=== PATIENT | female | born 1970 | race Caucasian/White ===

== ENCOUNTER 2021-01-02 19:45 | Observation (INO) | payer BC ==
[2021-01-02 20:24] LABS: #Basophils 0.1 10x3/uL (0.0-0.2); #Eosinphils 0.6 10x3/uL (0.0-0.5); #Monocytes 0.7 10x3/uL (0.0-1.1); #Neutrophils 5.5 10x3/uL (1.5-8.4); %Basophils 0.7 % (0.0-2.0); %Eosinophils 5.9 % (0.0-6.0); %Lymphocytes 35.8 % (18.0-47.0); %Monocytes 6.5 % (0.0-10.0); %Neutrophils 50.8 % (40.0-75.0); Mean Corpuscular HGB CONC 33.6 g/dL (32.0-36.0); Mean Corpuscular Hemoglobin 31.5 pg (27.0-33.0); Mean Corpuscular Volume 93.7 fl (81.6-98.3); Platelet Count 398 10x3/uL (150-450); RBC Distribution Width 13.5 % (11.5-14.5); Red Blood Cell (RBC) Count 4.76 10x6/uL (3.90-5.03); White Blood Cell (WBC) Count 10.8 10x3/uL (3.5-10.5)
[2021-01-02] MEDS ORDERED: Aspirin Chewable 81 MG TAB ONE (20:32)
[2021-01-02] MEDS ORDERED: Nitroglycerin 0.4 MG TAB 1 EACH ONE (20:32)
[2021-01-02] MEDS ORDERED: Ondansetron PF 4 MG/2 ML Vial ONE (20:33)
[2021-01-02 20:41] LABS: ALT (SGPT) 28 U/L (8-55); AST (SGOT) 19 U/L (5-34); Albumin 4.7 g/dL (3.5-5.0); Alkaline Phosphatase 67 U/L (40-110); Anion Gap 16 mmol/L (10-20); BUN (Urea Nitrogen) 16 mg/dL (7.0-18.7); Bilirubin, Total 0.4 mg/dL (0.2-1.2); Calc. Creatinine Clearance 0 mL/min (70-130); Calcium 9.2 mg/dL (7.8-10.44); Carbon Dioxide 21 mmol/L (22-29); Chloride 107 mmol/L (98-107); Globulin 2.9 g/dL (2.4-3.5); Glucose 99 mg/dL (70-105); Potassium 4.3 mmol/L (3.5-5.1); Protein, Total 7.6 g/dL (6.0-8.3); Sodium 140 mmol/L (136-145)
[2021-01-02] MEDS ORDERED: Cyclobenzaprine 10 MG TAB ONE (22:10)
[2021-01-02] MEDS ORDERED: Zolpidem Tartrate 5 MG TAB PO PRN (22:40)
[2021-01-02] MEDS ORDERED: Ondansetron PF 4 MG/2 ML Vial IVP PRN (22:40)
[2021-01-02] MEDS ORDERED: Calcium Carbonate 500 MG ChewTAB PO PRN (22:40)
[2021-01-02] MEDS ORDERED: ALPRAZolam 0.25 MG TAB PO PRN (22:45)
[2021-01-03 00:03] VITALS: BMI 36.3
[2021-01-03] MEDS ORDERED: Lactated Ringer's 500 ML IV SCH (00:30)
[2021-01-03] MEDS: HYDROcodone/Acetaminophen 5/325 mg Tablet PO PRN ×2 (01:13→22:10)
[2021-01-03 01:50] LABS: SARS-CoV-2 NAA Rapid Test Not Detected (NotDetected)
[2021-01-03 04:59] LABS: Anion Gap 12 mmol/L (10-20); BUN (Urea Nitrogen) 17 mg/dL (7.0-18.7); Calc. Creatinine Clearance 122 mL/min (70-130); Carbon Dioxide 26 mmol/L (22-29); Cardiac Risk 5.6 (Less than 4.5); Chloride 108 mmol/L (98-107); Cholesterol 195 mg/dl (< 200 Desired); Glucose 134 mg/dL (70-105); HDL Cholesterol 35 mg/dL (>60 Neg Risk); LDL Cholesterol, Calculated 98 mg/dL; Potassium 4.4 mmol/L (3.5-5.1); Sodium 142 mmol/L (136-145); Triglycerides 312 mg/dL (Less than 150)
[2021-01-03 08:05] LABS: Bilirubin Neg (Negative); Blood, Urine Negative (Negative); Clarity Slightly Cloudy (Clear); Glucose, Urine (Dipstick) Normal (Negative); Ketone, Urine Negative (Negative); Leukocyte 100 (Negative); Nitrite Negative (Negative); Protein, Urine (Dipstick) Negative (Neg-Trace); Specific Gravity, Urine 1.015 (1.002-1.036); Urobilinogen Normal mg/dL (Less than 2)
[2021-01-03 08:20] LABS: Bacteria/HPF 3+ HPF (None Seen); RBC/HPF 0-3 HPF (0-3)
[2021-01-03] MEDS: Aspirin 81 mg Enteric Coated Tablet PO SCH (08:24)
[2021-01-03] MEDS: DULoxetine 30 MG CAP PO SCH (08:24)
[2021-01-03] MEDS: Enoxaparin Sodium 40 MG/0.4 ML SYRINGE SC SCH (08:24)
[2021-01-03] MEDS: Famotidine/PF 20 mg/2ml Vial SLOW IVP SCH ×2 (08:24→20:36)
[2021-01-03] MEDS ORDERED: Ketorolac Tromethamine 30 MG/ML VIAL IVP SCH (08:45)
[2021-01-03] MEDS ORDERED: Metoprolol Tartrate 25 MG TAB PO SCH ×2 (09:00→10:00)
[2021-01-03] MEDS: Nitroglycerin 0.4 MG TAB (25 Tab Bottle) SL PRN ×2 (10:21→11:06)
[2021-01-03] MEDS: Acetaminophen 325 MG TAB PO PRN (10:40)
[2021-01-03 11:26] LABS: Hemoglobin A1c 5.6 % (4.0-6.0)
[2021-01-03 12:23] LABS: Troponin I Less than 0.010 ng/mL (< 0.028)
[2021-01-03 17:25] LABS: Bilirubin Neg (Negative); Blood, Urine Negative (Negative); Clarity Cloudy (Clear); Glucose, Urine (Dipstick) Normal (Negative); Ketone, Urine Negative (Negative); Leukocyte 100 (Negative); Nitrite Negative (Negative); Protein, Urine (Dipstick) Negative (Neg-Trace); Specific Gravity, Urine 1.005 (1.002-1.036); Urobilinogen Normal mg/dL (Less than 2)
[2021-01-03 18:26] LABS: Bacteria/HPF 2+ HPF (None Seen); Mucous/LPF 1+ LPF (<2+); RBC/HPF 0-3 HPF (0-3)
[2021-01-03] MEDS: Metoprolol Tartrate 25 MG TAB PO SCH (20:36)
[2021-01-03] MEDS ORDERED: Atorvastatin Calcium 40 MG TAB PO SCH (21:00)
[2021-01-04] MEDS: DULoxetine 30 MG CAP PO SCH (05:46)
[2021-01-04] MEDS: Aspirin 81 mg Enteric Coated Tablet PO SCH (05:46)
[2021-01-04] MEDS: Metoprolol Tartrate 25 MG TAB PO SCH ×2 (05:46→09:28)
[2021-01-04] MEDS: Famotidine/PF 20 mg/2ml Vial SLOW IVP SCH (05:46)
[2021-01-04 05:56] LABS: Anion Gap 13 mmol/L (10-20); BUN (Urea Nitrogen) 18 mg/dL (7.0-18.7); Calc. Creatinine Clearance 126 mL/min (70-130); Calcium 8.7 mg/dL (7.8-10.44); Carbon Dioxide 24 mmol/L (22-29); Chloride 108 mmol/L (98-107); Glucose 103 mg/dL (70-105); Potassium 5.1 mmol/L (3.5-5.1); Sodium 140 mmol/L (136-145)
[2021-01-04 06:20] LABS: #Basophils 0.1 10x3/uL (0.0-0.2); #Eosinphils 0.8 10x3/uL (0.0-0.5); #Monocytes 0.6 10x3/uL (0.0-1.1); #Neutrophils 3.2 10x3/uL (1.5-8.4); %Eosinophils 8.8 % (0.0-6.0); %Lymphocytes 46.7 % (18.0-47.0); %Monocytes 6.7 % (0.0-10.0); %Neutrophils 36.5 % (40.0-75.0); Hemoglobin 13.5 g/dL (12.0-15.5); Mean Corpuscular HGB CONC 33.3 g/dL (32.0-36.0); Mean Corpuscular Hemoglobin 31.2 pg (27.0-33.0); Mean Corpuscular Volume 93.8 fl (81.6-98.3); Mean Platelet Volume 9.1 fl (7.4-10.4); Platelet Count 349 10x3/uL (150-450); RBC Distribution Width 13.7 % (11.5-14.5); Red Blood Cell (RBC) Count 4.33 10x6/uL (3.90-5.03); White Blood Cell (WBC) Count 8.9 10x3/uL (3.5-10.5)
[2021-01-04] MEDS: Enoxaparin Sodium 40 MG/0.4 ML SYRINGE SC SCH (08:20)
[2021-01-04] MEDS ORDERED: Adenosine 6 MG/2 ML VIAL ONE (09:11)
[2021-01-04] MEDS ORDERED: Lidocaine 1% (PF) 30 ML VIAL ONE (09:11)
[2021-01-04] MEDS ORDERED: Heparin 10,000 UNITS/ 10 ML VIAL ONE (09:11)
[2021-01-04] MEDS ORDERED: Nitroglycerin 50 MG/250 ML BOT 250 ML ONE (09:11)
[2021-01-04] MEDS ORDERED: Sodium Chloride 0.9% 1,000 ML ONE (09:12)
[2021-01-04] MEDS: Acetaminophen 325 MG TAB PO PRN (09:29)
[2021-01-04] MEDS ORDERED: Midazolam HCl 2 mg/2 ml Vial ONE (10:01)
[2021-01-04] MEDS ORDERED: Fentanyl 100 MCG/2 ML VIAL ONE (10:01)
[2021-01-04] MEDS ORDERED: Sodium Chloride 0.9% 200 ML IV PRN (10:33)
[2021-01-04] MEDS ORDERED: Nitroglycerin 0.4 MG TAB (25 Tab Bottle) SL PRN (10:33)
[2021-01-04] MEDS ORDERED: Acetaminophen/Codeine 30-300mg Tablet PO PRN ×4 (10:33→10:41)
[2021-01-04] MEDS ORDERED: Sodium Chloride 0.9% 1,000 ML IV SCH (10:45)
[2021-01-04 18:38] VITALS: BP 99/62; TEMP 97.3
== END 2021-01-04 18:15 | disposition home or self-care (01) ==
LOC: CSHERS 19:45 → CSHTELE 22:40 → INTOOBSV 22:40 → CSHTELE 23:56 → UNDOADMIN 23:56
PROVIDERS: ADMIT Student in an Organized Health Care Education/Training Program; ATTEND Nurse Practitioner Family
DX: R07.9 Chest pain, unspecified (principal); I10 Essential (primary) hypertension; E78.5 Hyperlipidemia, unspecified; E86.0 Dehydration; K76.0 Fatty (change of) liver, not elsewhere classified; F41.8 Other specified anxiety disorders; F17.210 Nicotine dependence, cigarettes, uncomplicated; Z20.822 Contact with and (suspected) exposure to COVID-19; Z79.899 Other long term (current) drug therapy; Z90.710 Acquired absence of both cervix and uterus
CPT/HCPCS: 36415; 71045; 76705; 80048; 80053; 80061; 81001; 83036; 84484; 85025; 85379; 87631; 93005; 93010; 93306; 93458; 96372; 96374; 96375; 96376; 99152; 99153; C1760; G0378; J0153; J1644; J1650; J1885; J2001; J2250; J2405; J3010; J7050; J7120; S0028; U0002